=== PATIENT | female | born 1985 | race Caucasian/White ===

== ENCOUNTER 2025-01-12 09:04 | Outpatient (OUT) | payer MEDICAID, SELFPAY ==
--- OUTSIDE RECORDS SUMMARY | 2024-11-19 04:00 | XMS_ITS ---
Author Organization [facility] Address [address] [place] [address] Care Team Providers Care University Dean Name Role Phone Genoveva Jones Primary Care Provider Dr. Parker Mendes [facility] [phone] REASON FOR VISIT DELIVERY Social History Sex Assigned At : Social History Observation Description Sex Assigned At Female Encounters Encounter Location Date Provider Diagnosis [facility] [address] [place] [address] 11/19/2024 Parker Mendes Plan Of Treatment Next Appt Details Provider Name:Iris Duque , 05/17/2025 08:40:00 AM, [address] [place], [address], Progress Notes * NICHOLAS SMISOB:1985 (39 yo M)Acc No.[id number]:11/19/2024 Dental Appointment Patient: BERTO DANIELS Provider: Yunior Mendes DDS :1985 A ge:39 Y S ex:Male(T) Date:11/19/2024 Address:[address], [place], [place] Pcp:Genoveva Jones Subjective: * Chief Complaints: * 1 . DELIVERY. * Medical History: Objective: * Vitals: Assessment: Plan: * Treatment: * Images: * Electronic signature of Dr. Parker Mendes , DMD on 01/12/2025 at 09:08 AM EDT Sign off status: Pending * Provider: Yunior Mendes DDS Date: 0 11/19/2024 Generated for Liz bee/Rowan/Mic on: 0 01/12/2025 09:08 AM EDT
--- OUTSIDE RECORDS SUMMARY | 2024-11-25 04:30 | XMS_ITS ---
Author Organization [facility] Address [address] [place] [place] [address] Care Team Providers Care Economics Professor Name Role Phone Genoveva Jones Primary Care Provider REASON FOR VISIT FILLING AND ADJ IF NEEDED Social History Sex Assigned At : Social History Observation Description Sex Assigned At Female Encounters Encounter Location Date Provider Diagnosis [facility] [address] [place] [address] 11/25/2024 Genoveva Jones Plan Of Treatment Next Appt Details Provider Name:Iris Duque , 05/17/2025 08:40:00 AM, [address] [place], [address], Progress Notes * NICHOLAS SIMSOB:1985 (39 yo M)Acc No.[id number]:11/25/2024 Patient: BERTO DANIELS Provider: Yunior Jones :1985 A ge:39 Y S ex:Male(T) Date:11/25/2024 Address:[address], [facility] Subjective: * Chief Complaints: * 1 . FILLING AND ADJ IF NEEDED. * Medical History: Objective: * Vitals: Assessment: Plan: * Treatment: * Images: * Electronic signature of Lorraine Jones DMD on 01/12/2025 at 09:07 AM EDT Sign off status: Pending * Provider: Yunior Jones Date: 0 11/25/2024 Generated for Liz bee/Rowan/Mic on: 0 01/12/2025 09:07 AM EDT
--- OUTSIDE RECORDS SUMMARY | 2024-12-29 10:00 | XMS_ITS | Encounter Summary ---
Author Organization [facility] Address [address] [place] [address] Care Team Providers Care Software Qa Manager Name Role Phone Marylin Dutton DO Primary Care Provider [phone] Reason for Visit * Reason Comments Allergy Testing Pt here for allergy testing for environmental allergy testing and possible bleach allergy she/he c/o asthma due to contact with bleach * Consultation (Routine) - Closed Specialty Diagnoses / Procedures Referred By Contac t Referred To Contact Allergy and Immunology / Allergy Diagnoses Other allergy status, other than to drugs and biological substances Procedures [facility] [address] [place] [address] Phone: tel: fax: Bakari Emanuel MD [address] [address] Phone: tel: fax: Referral ID Status Reason Start Date Expiration Date Visits Re quested Visits Authorized [id number] Closed 11/09/2024 05/08/2025 1 1 Encounter Details Date Type Department Care Team (Late st Contact Info) Description 12/29/2024 10:00 AM EDT Office Visit [facility] [address] [id number] Bakari Emanuel MD [address] [address] Dyspnea, unspecified type (Primary Dx); Chronic rhinitis Social History Tobacco Use Types Packs/Day Years Used Date Smoking Tobacco: Former Cigarettes 2 15 0 08/11/1999 - 08/11/2014 Smokeless Tobacco: Never Tobacco Cessation:Counseling Given: Not Answered Alcohol Use Standard Drinks/Week Comments Yes 0 (1 standard drink = 0.6 oz pur e alcohol) Maybe once or twice a year AUDIT-C Answer Date Recorded Q1: How often do you have a drink containing alc ohol? Monthly or less 11/18/2023 Q2: How many drinks containi ng alcohol do you have on a typical day when you are drinking? 1 or 2 11/18/2023 Q3: How often do you have si x or more drinks on one occasion? Never 11/18/2023 PHQ-2 Answer Date Recorded Patient Health Questionnaire-2 Score 0 11/18/2023 Comments No Sex and Gender Information Value Date Recorded Sex Assigned at Female 11/18/2023 9:19 AM EDT Legal Sex Female 3:20 PM EDT Gender Identity Male 11/18/2023 9:19 AM EDT Sexual Orientation Straight 11/18/2023 9: 19 AM EDT documented as of this encounter Last Filed Vital Signs Vital Sign Reading Time Taken Comments Blood Pressure - - Pulse - - Temperature - - Respiratory Rate - - Oxygen Saturation - - Inhaled Oxygen Concentration - - Weight 89.8 kg (198 lb) 12/29/2024 9:42 AM EDT Height 170.2 cm (5' 7 ) 12/29/2024 9:42 AM EDT Body Mass Index 31.01 12/29/2024 9:42 AM EDT documented in this encounter Progress Notes * Bakari Emanuel MD - 12/29/2024 10:00 AM EDT Jun Moody is a very pleasant 39 y.o. year old adult who comes to the office today with the chiefcomplaint of concern about environmental allergies. Referred by Dr. Marylin Dutton He takes 6 allergy tabs OTC per day plus montelukast for symptoms of allergic rhinoconjunctivitis and asthma. These meds only help a little bit. Flonase helps only a little bit. He feels worse outdoors and with dust and debris. He feels bleach with trigger symptoms of sneeze itching and SOB and asthma attacks. Asthma control test today is 12. He is most bothered by rhinorrhea sniffling and itchy watery eyes and nasal itching and asthma symptoms. He takes Trelegy every day and this is very helpful compared to Symbicort. He feels asthma if triggered by bleach pollen heat environmental tobacco smoke and exercise. He and his have a cat at home which is a trigger for him. He has never been hospitalized for asthma since he was a child. The patient appears comfortable in the office today. Lungs are clear to auscultation bilaterally. The oral mucosa is pink and healthy without any lesions or ulcers. The palate elevates in the midline. The nasal mucosa is pale and congested with a moderate amount of turbinate engorgement and clear rhinorrhea. No polyps or epistaxis is noted. The skin is clear of any rashes, lesions, or ulceration/excoriation. Asthma control test in the office today is 12. Based on the HPI and physical exam, it is medically necessary to perform allergy skin testing todayto differentiate if the patients symptoms are allergic in nature and devise a treatment plan. This is a separate procedure from the time spent on the EM encounter. As the patient has not taken any antihistamines within the past five days, we will proceed with skin testing today. Skin testing in theoffice today performed under direct physician supervision showed positive testing for cat dust mitemold spores tree grass and ragweed. Exhaled nitric oxide is normal at 10 parts per billion. Spirometry shows an FEV1 of 110 percent of predicted with North scooping of the flow volume loop. IMPRESSION: Dyspnea on exertion - I provided reassurance regarding his normal breathing studies however given his significant symptoms we agreed to perform a methacholine challenge test to clarify whether asthma is present. Allergic rhinoconjunctivitis - We reviewed avoidance measures for the above allergens and agreed they would perform these in the home environment. I discussed the risks and benefits of allergen immunotherapy including the time commitment involved and the risk of anaphylaxis and the need to avoid beta blockers and she would like to proceed with this option. We discussed the need to avoid immunotherapy injections in the setting of wheezing shortness of breath or severe allergy symptoms. Follow was arranged in 3 months to follow the progress of immunotherapy. documented in this encounter Plan of Treatment Upcoming Encounters Date Type Department Care Team (Late st Contact Info) Description 01/17/2025 9:30 AM EDT Clinical Support [facility] [address] [place] [address] 01/24/2025 10:45 AM EDT Clinical Support [facility] [address] [place] [address] 01/31/2025 9:45 AM EDT Clinical Support [facility] [address] [place] [address] 02/07/2025 9:00 AM EDT Clinical Support [facility] [address] [place] [address] 03/09/2025 10:20 AM EDT Office Visit [facility] [address] [place] [address] Bakari Emanuel MD [address] [place] [address] 04/04/2025 12:15 PM EDT Office Visit [facility] [address] [place] [address] Irving Casper DO [address] [place] [address] Scheduled Orders Name Type Priority Associated Diagnoses Orde r Schedule METHACHOLINE CHALLENGE TEST Imaging Routine Dyspnea, unspecified type Expected: 12/29/2024, Expires: 12/29/2025 documented as of this encounter Visit Diagnoses Diagnosis Dyspnea, unspecified type- Primary Chronic rhinitis documented in this encounter Care Teams Software Qa Manager Relationship Specialty Start Date End Date Marylin Dutton DO PCP - General Family Medicine 11/06/23 documented as of this encounter
--- OUTSIDE RECORDS SUMMARY | 2025-01-10 15:45 | XMS_ITS | Encounter Summary ---
Author Organization [facility] Address [address] [place] [address] Care Team Providers Care Rotary Cutter Operator Name Role Phone Marylin Dutton DO Primary Care Provider [phone] Encounter Details Date Type Department Care Team (Latest Contact Info) Description 01/10/2025 3:45 PM EDT Clinical Support [facility] [address] [place] [address] Allergic rhinitis due to animal (cat) (dog) hair and dander; Allergic rhinitis due to dust; Seasonal allergic rhinitis due to pollen Social History Tobacco Use Types Packs/Day Years Used Date Smoking Tobacco: Former Cigarettes 2 15 0 08/11/1999 - 08/11/2014 Smokeless Tobacco: Never Alcohol Use Standard Drinks/Week Comments Yes 0 [...] AM EDT documented as of this encounter Progress Notes * Susi Sepulveda LPN - 01/10/2025 3:45 PM EDT No problem with allergy shot. Patient remained in office for recommended 30 minutes. Serum #1 Antigen(s) Serum #1 Antigen(s): Df/Dp/Clado Vial Concentration #1: 1:1,000 (Green) Dose (mL) #1: 0.05 Location #1: Left upper arm Reaction (Wheal/flare in mm) #1: none Serum #2 Antigen(s) Serum #2 Antigen(s): Tr/SpWd/Gr/SpGr Vial Concentration #2: 1:1,000 (Green) Dose (mL)#2: 0.05 Location #2: Right upper arm Reaction (Wheal/flare in mm) #2: none Serum #3 Antigen(s) (No admin fee over 2) Serum #3 Antigen(s): RW/Cat Hair Vial Concentration #3: 1:1,000 (Green) Dose: 0.05 Location: Left lower arm Reaction (Wheal/flare in mm) #3: none documented in this encounter Plan of Treatment Upcoming Encounters Date Type Department Care Team (Late st Contact Info) Description 01/17/2025 9:30 AM EDT Clinical Support [facility] [address] [place] [address] 01/24/2025 10:45 AM EDT Clinical Support [facility] [address] [place] [address] 01/31/2025 9:45 AM EDT Clinical Support [facility] [address] [place] [address] 02/07/2025 9:00 AM EDT Clinical Support [facility] [address] [place] [address] 03/09/2025 10:20 AM EDT Office Visit [facility] [address] [place] [address] Bakari Emanuel MD [address] [facility] [address] [place] [address] 04/04/2025 12:15 PM EDT Office Visit [facility] [address] [facility] [address] [place] [address] Irving Casper DO [address] [facility] [address] [place] [address] documented as of this encounter Visit Diagnoses Diagnosis Allergic rhinitis due to animal (cat) (dog) hair and dander Allergic rhinitis due to dust Allergic rhinitis due to other allergen Seasonal allergic rhinitis due to pollen documented in this encounter Care Teams Rotary Cutter Operator Relationship Specialty Start Date End Date Marylin Dutton DO PCP - General Family Medicine 11/06/23 documented as of this encounter
--- OUTSIDE RECORDS SUMMARY | 2025-01-12 09:07 | XMS_ITS | Clinical Summary ---
Author Organization [facility] Address [address] [place] [address] Care Team Providers Care Electroencephalographic Technologist Name Role Phone Marylin Dutotn DO Primary Care Provider Allergies Active Allergy Reactions Criticality Noted Date Comments Acetaminophen GI intolerance Low 02/19/2024 Aspirin Anaphylaxis High 05/19/2014 Other Reaction(s): Difficulty Breathing, heart stops Medications albuterol HFA 90 mcg/act inhaler 4 Active montelukast (Singulair) 10 MG tablet .COMPLEX 4 Active topiramate (Topamax) 25 MG tablet Daily 4 Active Fexofenadine HCl (ALLERGY 24-HR PO) Take by mouth Active estradiol-noret hindrone (Activella) 1-0.5 MG tabletIndicatio ns:Hot flashes due to surgical menopause Take 1 tablet by mouth Daily 90 tablet 3 4 025 Active Fluticasone-Ume clidin-Vilant (Trelegy Ellipta) 100-62.5-25 MCG/ACT aerosol powder Daily 5 Active lidocaine (Lidoderm) 5 % patch Daily as needed for pain 4 Active naproxen sodium (Anaprox) 550 MG tablet Take 550 mg by mouth every 12 (twelve) hours 5 Active Nurtec 75 MG tablet dispersible 4 Active topiramate 50 MG tablet Take 1 tablet by mouth in the morning. 5 Active budesonide-form oterol (Symbicort) 160-4.5 MCG/ACT inhaler Twice daily 4 025 Discontinued meloxicam (Mobic) 15 MG tablet Daily 4 025 Discontinued rizatriptan (Maxalt) 10 MG tablet Take 10 mg by mouth 1 (one) time if needed 4 025 Discontinued naproxen (Naprosyn) 500 MG tablet Take 500 mg by mouth in the morning and 500 mg in the evening. Take with meals. 4 025 Discontinued Active Problems No known active problems Encounters Date Type Department Care Team Description 01/10/2025 3:45 PM EDT Clinical Support [facility] [address] [place] [address] Allergic rhinitis due to animal (cat) (dog) hair and dander; Allergic rhinitis due to dust; Seasonal allergic rhinitis due to pollen 01/10/2025 Travel 01/04/2025 Outside Procedure [facility] [address] [place] [address] Caitlin Piedra RN Allergic rhinitis due to animal (cat) (dog) hair and dander; Allergic rhinitis due to dust; Seasonal allergic rhinitis due to pollen; Seasonal allergic rhinitis, unspecified trigger 12/29/2024 10:00 AM EDT Office Visit [facility] [address] [place] [address] Bakari Emanuel MD Dyspnea, unspecified type (Primary Dx); Chronic rhinitis 12/29/2024 Bamboo flowsheet [facility] [address] [place] [address] Bakari Emanuel MD 12/29/2024 Travel 12/22/2024 Travel from Last 3 Months Family History Medical History Relation Name Comments Heart failure Father Juvencio Moody Mental illness Father Juvencio Moody Mental illness Mother Cancer Paternal Grandfather Irving Moody Relation Name Status Comments Father Juvencio Moody Mother Alive Paternal Grandfather Irving Moody Social History Tobacco Use Types Packs/Day Years [...] Orientation Straight 11/18/2023 9: 19 AM EDT Last Filed Vital Signs Vital Sign Reading Time Taken Comments Blood Pressure 140/78 03/29/2024 1:08 PM EDT Pulse - - Temperature 36.2 C (97.1 F) 11/18/2023 9:30 AM EDT Respiratory Rate - - Oxygen Saturation - - Inhaled Oxygen Concentration - - Weight 89.8 kg (198 lb) 12/29/2024 9:42 AM EDT Height 170.2 cm (5' 7 ) 12/29/2024 9:42 AM EDT Body Mass Index 31.01 12/29/2024 9:42 AM EDT Plan of Treatment Upcoming Encounters Date Type Department Care Team (Late st Contact Info) Description 01/17/2025 9:30 AM EDT Clinical Support [facility] [address] [place] [address] 01/24/2025 10:45 AM EDT Clinical Support [facility] [address] [place] [address] 01/31/2025 9:45 AM EDT Clinical Support [facility] [address] [place] [address] 02/07/2025 9:00 AM EDT Clinical Support [facility] [address] [place] [address] 03/09/2025 10:20 AM EDT Office Visit [facility] [address] [place] [address] Bakari Emanuel MD [address] [place] [address] 04/04/2025 12:15 PM EDT Office Visit [facility] [address] [place] [address] Irving Casper DO [address] [place] [address] Insurance [employer] [place]ICA[place] Care Teams Electroencephalographic Technologist Relationship Specialty Start Date End Date Marylin Dutton DO PCP - General Family Medicine 11/06/23
--- OUTSIDE RECORDS SUMMARY | 2025-01-12 09:07 | XMS_ITS | Clinical Summary ---
Author Organization [facility] Address [address] [place] [address] Care Team Providers Care Rn Women Services Name Role Phone Levy Portillo MD Primary Care Provider Unavailab le Allergies Active Allergy Reactions Criticality Noted Date Comments Aspirin Anaphylaxis High 05/19/2014 Medications ibuprofen (ADVIL;MOTRIN) 800 MG tablet Take 1 tablet by mouth every 8 hours as needed for Pain 30 tablet 9 Active budesonide-formo terol (SYMBICORT) 160-4.5 MCG/ACT AEROIndications: Moderate asthma, unspecified whether complicated, unspecified whether persistent Inhale 2 puffs into the lungs 2 times daily 3 Inhaler 1 1 Active SUMAtriptan (IMITREX) 100 MG tabletIndication s:Intractable migraine with status migrainosus, unspecified migraine type Take 1 tablet by mouth once as needed for Migraine 9 tablet 2 1 Active butalbital-aceta minophen-caffein e (FIORICET, ESGIC) 50-325-40 MG per tabletIndication s:Intractable migraine with status migrainosus, unspecified migraine type take 1 tablet by mouth every 4 hours if needed for HEADACHES OR MIGRAINE 15 tablet 5 2 Active albuterol sulfate HFA (VENTOLIN HFA) 108 (90 Base) MCG/ACT inhaler Inhale 2 puffs into the lungs 4 times daily as needed for Wheezing 18 g 2 Active Active Problems Problem Noted Date Diagnosed Date Intractable migraine with status migrainosus Mild asthma 01/30/2021 Chronic pain of both knees 01/30/2021 Class 1 obesity due to exces s calories without serious comorbidity with body mass index (BMI) of 33.0 to 33.9 in adult 01/30/2021 Resolved Problems Problem Noted Date Diagnosed Date Resolved Date Encounter for screening for HIV 01/30/2021 03/01/2021 Need for hepatitis C screening test 01/30/2021 03/01/2021 Immunizations Immunization Administration Dates Next Due TDaP, ADACEL (age 10y-64y), BOOSTRIX (age 10y+), IM, 0.5mL 12/06/2016 Social History Tobacco Use Types Packs/Day Years Used Date Smoking Tobacco: Never Cigarettes Smokeless Tobacco: Current Tobacco Cessation:Ready to Q uit: No; Counseling Given: No Alcohol Use Standard Drinks/Week Comments No 0 (1 standard drink = 0.6 oz pur e alcohol) PHQ-2 Answer Date Recorded PHQ-9 Total Score 0 01/30/2021 Comments No Sex and Gender Information Value Date Recorded Sex Assigned at Female 12/31/2020 1:31 PM EDT Legal Sex Female 8:44 PM EDT Gender Identity Transgender Male 12/31/2020 1:31 PM EDT Sexual Orientation Straight 12/31/2020 1: 31 PM EDT Last Filed Vital Signs Vital Sign Reading Time Taken Comments Blood Pressure 129/106 10/22/2021 7:17 PM EDT Pulse 93 10/22/2021 7:17 PM EDT Temperature 36.4 C (97.6 F) 10/22/2021 5:02 PM EDT Respiratory Rate 19 10/22/2021 7:17 PM EDT Oxygen Saturation 100% 10/22/2021 7:17 PM EDT Inhaled Oxygen Concentration - - Weight 90.7 kg (200 lb) 10/22/2021 5:54 PM EDT Height 170.2 cm (5' 7 ) 01/30/2021 2:06 PM EDT Body Mass Index 31.32 01/30/2021 2:06 PM EDT Plan of Treatment Not on file Insurance [employer] Advance Directives Healthcare Agents on File Name Relationship Healthcare Agent Relationship Communication Syeda Raysa Spouse Primary Decision Maker [email or web address] om Care Teams Rn Women Services Relationship Specialty Start Date End Date Levy Portillo MD PCP - General Family Medicine 01/30/21
--- OUTSIDE RECORDS SUMMARY | 2025-01-12 09:07 | XMS_ITS | Encounter Summary ---
Author Organization [facility] Address [address] [place] [address] Care Team Providers Care Ring Rolling Machine Operator Name Role Phone Marylin Dutton DO Primary Care Provider [phone] Encounter Details Date Type Department Care Team (Latest Contact Info) Description 01/10/2025 Travel Social History Tobacco Use Types Packs/Day Years [...] AM EDT documented as of this encounter Plan of Treatment Upcoming Encounters Date Type Department Care Team (Late st Contact Info) Description 01/17/2025 9:30 AM EDT Clinical Support [facility] [address] [place] [address] 01/24/2025 10:45 AM EDT Clinical Support [facility] [address] [place] [address] 01/31/2025 9:45 AM EDT Clinical Support [facility] [address] [place] [address] 02/07/2025 9:00 AM EDT Clinical Support [facility] [address] [place] [address] 03/09/2025 10:20 AM EDT Office Visit [facility] [address] [place] [address] Bakari Emanuel MD [address] [place] [address] 04/04/2025 12:15 PM EDT Office Visit [facility] [address] [place] [address] Irving Casper DO [address] [place] [address] documented as of this encounter Visit Diagnoses Not on filedocumented in this encounter Care Teams Ring Rolling Machine Operator Relationship Specialty Start Date End Date Marylin Dutton DO PCP - General Family Medicine 11/06/23 documented as of this encounter
--- OUTSIDE RECORDS SUMMARY | 2025-01-12 09:07 | XMS_ITS | Encounter Summary ---
Author Organization [facility] Address [address] [place] [address] Care Team Providers Care Child And Adolescent Therapist Name Role Phone Marylin Dutton DO Primary Care Provider [phone] Encounter Details Date Type Department Care Team (Latest Contact Info) Description 01/04/2025 Outside Procedure [facility] [address] [place] [address] Caitlin Inman, RN [address] [place] [address] Allergic rhinitis due to animal (cat) (dog) hair and dander; Allergic rhinitis due to dust; Seasonal allergic rhinitis due to pollen; Seasonal allergic rhinitis, unspecified trigger Social History Tobacco Use Types Packs/Day Years [...] 01/17/2025 9:30 AM EDT Clinical Support [facility] [address] [place] [address] 01/24/2025 10:45 AM EDT Clinical Support [facility] [address] [place] [address] 01/31/2025 9:45 AM EDT Clinical Support [facility] [address] [place] [address] 02/07/2025 9:00 AM EDT Clinical Support [facility] [address] [place] [address] 03/09/2025 10:20 AM EDT Office Visit [facility] [address] [place] [address] Bakari Emanuel MD [address] [place] [address] 04/04/2025 12:15 PM EDT Office Visit [facility] [address] [place] [address] Irving Casper DO [address] [place] [address] Scheduled Orders Name Type Priority Associated Diagnoses Orde r Schedule Immunotherapy prescription Procedures Routine Allergic rhinitis due to animal (cat) (dog) hair and dander Allergic rhinitis due to dust Seasonal allergic rhinitis due to pollen Seasonal allergic rhinitis, unspecified trigger Ordered: 01/04/2025 documented as of this encounter Visit Diagnoses Diagnosis Allergic rhinitis due to animal (cat) (dog) hair and dander Allergic rhinitis due to dust Allergic rhinitis due to other allergen Seasonal allergic rhinitis due to pollen Seasonal allergic rhinitis, unspecified trigger documented in this encounter Care Teams Child And Adolescent Therapist Relationship Specialty Start Date End Date Marylin Dutton DO PCP - General Family Medicine 11/06/23 documented as of this encounter
--- OUTSIDE RECORDS SUMMARY | 2025-01-12 09:08 | XMS_ITS | Patient Health Record ---
Author Organization [facility] Address [address] [place] [address] Care Team Providers Care Gas Station Attendant Name Role Phone Genoveva Jones Primary Care Provider [phone] Parker Mendes Unavailable [phone] Iris Duque Unavailable [phone] Reason For Referral No Information Medications Medication SIG (Take, Route, Fr equency, Duration) Notes Start Date End Date Status Ibuprofen 800 MG 1 tablet with food o r milk as needed Orally Three times a day 07/13/2024 Active Ibuprofen 800 MG 1 tablet with food o r milk as needed Orally Three times a day 07/06/2024 Active Social History Sex Assigned At : Social History Observation Description Sex Assigned At Female Encounters Encounter Location Date Provider Diagnosis [facility] [address] [place] [address] 03/09/2024 Genoveva Jones Encounter for dental examination and cleaning with abnormal findings Z01.21 ; Other dental procedure status Z98.818 ; Acute gingivitis, plaque induced K05.00 ; Cracked tooth K03.81 and Partial loss of teeth, unspecified cause, class I K08.401 [facility] [address] [place] [address] 10/18/2024 Genoveva Jones Other dental procedure status Z98.818 [facility] [address] [place] [address] 11/08/2024 Genoveva Jones Partial loss of teeth, unspecified cause, class I K08.401 [facility] [address] [place] [address] 05/13/2024 Genoveva Jones Cracked tooth K03.81 [facility] [address] [place] [address] 07/06/2024 Genoveva Campbellic Cracked tooth K03.81 [facility] [address] [place] [address] 07/13/2024 Genoveva Saric [facility] [place] [address] 09/14/2024 Genoveva Jones Partial loss of teeth, unspecified cause, class I K08.401 [facility] [address] [place] [address] 04/05/2024 Iris Duque Acute gingivitis, plaque induced K05.00 [facility] [address] [place] [address] 03/26/2024 Genoveva Jones Assessments Encounter Date Diagnosis (ICD Code) Assessment Notes Treatment Notes Treatment Clinical Notes Section Notes 10/18/2024 Other dental procedure status (ICD-10 - Z98.818) 11/08/2024 Partial loss of teeth, unspecified cause, class I (ICD-10 - K08.401) 03/09/2024 Encounter for dental examination and cleaning with abnormal findings (ICD-10 - Z01.21) 04/05/2024 Acute gingivitis, plaque induced (ICD-10 - K05.00) 05/13/2024 Cracked tooth (ICD-10 - K03.81) 07/06/2024 Cracked tooth (ICD-10 - K03.81) 09/14/2024 Partial loss of teeth, unspecified cause, class I (ICD-10 - K08.401) 03/09/2024 Other dental procedure status (ICD-10 - Z98.818) 03/09/2024 Acute gingivitis, plaque induced (ICD-10 - K05.00) 03/09/2024 Cracked tooth (ICD-10 - K03.81) 03/09/2024 Partial loss of teeth, unspecified cause, class I (ICD-10 - K08.401) Plan Of Treatment Next Appt Details Provider Name:Iris Duque , 05/17/2025 08:40:00 AM, [address], [place], [address], Insurance Providers Payer Name Payer Address Payer Phone Subscriber Number Group Number Insured Name Patient Relationship to Insured Coverage Start Date Coverage End Date Dental [employer] DQ [address] [place] [address] [id number] BERTO SIMS Self - patient is the insured 4 [employer] [facility] [employer] [address] [place] [address] [id number] BERTO SIMS Self - patient is the insured 4
--- OUTSIDE RECORDS SUMMARY | 2025-01-12 09:08 | XMS_ITS | Encounter Summary ---
Author Organization [facility] Address [address] [place] [address] Care Team Providers Care Specialty Finishing Utility Person Name Role Phone Marylin Dutton DO Primary Care Provider [phone] Encounter Details Date Type Department Care Team (Latest Contact Info) Description 12/29/2024 Travel Social History Tobacco Use Types Packs/Day [...] [address] [place] [address] 01/24/2025 10:45 AM EDT Clinical Support [facility] [address] [place] [address] 01/31/2025 9:45 AM EDT Clinical Support [facility] [address] [place] [address] 02/07/2025 9:00 AM EDT Clinical Support [facility] [address] [place] [address] 03/09/2025 10:20 AM EDT Office Visit [facility] [address] [place] [address] Bakari Emanuel MD [address] [place] [address] 04/04/2025 12:15 PM EDT Office Visit [facility] [address] [place] [address] Irving Casper DO [address] [place] [address] documented as of this encounter Visit Diagnoses Not on filedocumented in this encounter Care Teams Specialty Finishing Utility Person Relationship Specialty Start Date End Date Marylin Dutton DO PCP - General Family Medicine 11/06/23 documented as of this encounter
--- OUTSIDE RECORDS SUMMARY | 2025-01-12 09:08 | XMS_ITS | Patient Health Record ---
Author Organization [facility] Address [address] [place] [address] Care Team Providers Care Health Sciences Manager Name Role Phone None, Unknown or Primary Care Provider Unavailab le Reason For Referral No Information Plan Of Treatment No Information Insurance Providers Payer Name Payer Address Payer Phone Subscriber Number Group Number Insured Name Patient Relationship to Insured Coverage Start Date Coverage End Date Karen Graham [address] [facility] [address] [place] [id number] Denisse Moody Self - patient is the insured 2
--- OUTSIDE RECORDS SUMMARY | 2025-01-12 09:08 | XMS_ITS | Encounter Summary ---
Author Organization [facility] Address [address] [place] [address] Care Team Providers Care Retail Banking Manager Name Role Phone Marylin Dutton DO Primary Care Provider [phone] Encounter Details Date Type Department Care Team (Late st Contact Info) Description 12/29/2024 Bamboo flowsheet [facility] [address] [facility] [address] [place] [address] Bakari Emanuel MD [address] [facility] [address] [place] [address] Social History Tobacco Use Types Packs/Day Years [...] [address] [place] [address] 01/24/2025 10:45 AM EDT Clinical Support [facility] [address] [place] [address] 01/31/2025 9:45 AM EDT Clinical Support [facility] [address] [place] [address] 02/07/2025 9:00 AM EDT Clinical Support [facility] [address] [place] [address] 03/09/2025 10:20 AM EDT Office Visit [facility] [address] [place] [address] Bakari Emanuel MD [address] [place] [address] 04/04/2025 12:15 PM EDT Office Visit [facility] [address] [place] [address] Irving Casper DO [address] [place] [address] documented as of this encounter Visit Diagnoses Not on filedocumented in this encounter Care Teams Retail Banking Manager Relationship Specialty Start Date End Date Marylin Dutton DO PCP - General Family Medicine 11/06/23 documented as of this encounter
--- NOTE | 2025-01-12 10:36 | RT_ITS ---
[facility] Test Date: 2025-01-12 Pat Name: BERTO SIMS Department: Room: - Gender: Female Clother In: Greg Aparicio RRT : 1985 Requested By: [id number] Order Number: [id number] Reading MD: Miguel Goznalez Interpretive Statements Bronchoprovocation study was conducted with methacholine at sequentially increasing aliquot concentrations according to ATS criteria. Findings were considered accurate and reproducible. Methacholine was administered up to the 16mg/mL concentration. Baseline spirometry: -FEV1/FVC: 78% -FEV1: 103% (3.18L) -FVC: 108% -KII76-33%: 88% -Flow-volume loop: Normal expiratory curvature Spirometry @ 16mg/mL methacholine concentration: -FEV1/FVC: 82% -FEV1: 3.23L (+1% improvement) Post-bronchodilator spirometry: -FEV1/FVC: 78% -FEV1: 3.32L (+4% improvement) Impressions: -No significant drop in the FEV1 up to and including the maximum administered concentration of methacholine of 16mg/mL. This is a negative bronchoprovocation challenge. Clinical correlation required. Electronically Signed On 01-13-2025 10:57:46 EDT by Miguel Gonzalez
[2025-01-12] MEDS: [UNRECOGNIZED DRUG - OTHER] IH (10:42)
[2025-01-12] MEDS: [UNRECOGNIZED DRUG - OTHER] IH (10:43)
[2025-01-12] MEDS: [UNRECOGNIZED DRUG - OTHER] IH (10:44)
[2025-01-12] MEDS: [UNRECOGNIZED DRUG - OTHER] IH (10:44)
[2025-01-12] MEDS: [UNRECOGNIZED DRUG - OTHER] IH (10:44)
[2025-01-12] MEDS: [UNRECOGNIZED DRUG - OTHER] IH (10:44)
[2025-01-12] MEDS: ALBUTEROL SULFATE 2.5 MG/3 ML VIAL NEB IH (10:55)
== END 2025-01-12 09:05 | disposition home or self-care (01) ==
LOC: CARD 09:05
PROVIDERS: Family Provider Family Medicine; PCP Family Medicine
DX: R06.00 Dyspnea, unspecified (principal)
CPT/HCPCS: 95070; J7674

== ENCOUNTER 2025-02-02 13:45 | Emergency (ER) | payer MEDICAID, SELFPAY ==
--- OUTSIDE RECORDS SUMMARY | 2025-01-24 10:45 | XMS_ITS | Encounter Summary ---
Author Organization [facility] Address [address] [place] [address] Care Team Providers Care Reed Press Feeder Name Role Phone Marylin Dutton DO Primary Care Provider [phone] Encounter Details Date Type Department Care Team (Latest Contact Info) Description 01/24/2025 10:45 AM EDT Clinical Support [facility] [address] [place] [address] Allergic rhinitis due to animal (cat) (dog) hair and dander Social History Tobacco Use Types Packs/Day Years [...] as of this encounter Progress Notes * Tonio Ferraro RN - 01/24/2025 10:45 AM EDT Patient remained in office for recommended 30 minutes. Serum #1 Antigen(s) Serum #1 Antigen(s): DF/Dp/Clado Vial Concentration #1: 1:1,000 (Green) Dose (mL) #1: 0.2 Location #1: Left upper arm Serum #2 Antigen(s) Serum #2 Antigen(s): Tr/Spwd/Gr/Spgr Vial Concentration #2: 1:1,000 (Green) Dose (mL)#2: 0.2 Location #2: Right upper arm Serum #3 Antigen(s) (No admin fee over 2) Serum #3 Antigen(s): RW/cat hair Vial Concentration #3: 1:1,000 (Green) Dose: 0.2 Location: Left lower arm documented in this encounter Plan of Treatment Upcoming Encounters Date Type Department Care Team (Late st Contact Info) Description 02/07/2025 9:00 AM EDT Clinical Support [facility] [address] [place] [address] 03/09/2025 10:20 AM EDT Office Visit [facility] [address] [place] [address] Bakari Emanuel MD [address] [place] [address] 04/04/2025 12:15 PM EDT Office Visit [facility] [address] [place] [address] Irving Casper DO [address] [place] [address] documented as of this encounter Visit Diagnoses Diagnosis Allergic rhinitis due to animal (cat) (dog) hair and dander documented in this encounter Care Teams Reed Press Feeder Relationship Specialty Start Date End Date Marylin Dutton DO PCP - General Family Medicine 11/06/23 documented as of this encounter
[2025-02-02 13:49] VITALS: BP 147/75; PULSE 90; TEMP 36.8; O2SAT 100; BMI 32.1
--- NOTE | 2025-02-02 13:59 | XR_ITS ---
The [place] [id number] Patient Name: BERTO SIMS MRN: [id number] date: 1985 Sex: F Assigned Patient Location: ED.MAIN Current Patient Location: ED.MAIN Accession/Order Number: [id number] Exam Date: 02/02/2025 14:31 Report Date: 02/02/2025 14:32 At the request of: SOLE CASTREJON MD Procedure: XR chest 1V XR chest 1V 02/02/2025 2:23 PM SIGNS AND SYMPTOMS: ^CP ^Y PROTOCOL: Frontal radiograph of the chest, shortness of breath COMPARISON: None FINDINGS: The trachea is midline. The heart and mediastinal structures are within normal limits. The lung parenchyma is clear. The bony thorax is intact. XR/XR chest 1V IMPRESSION: No acute cardiopulmonary pathology. Impression dictated by: Juvencio Rivera M.D. 02/02/2025 2:32 PM Dictation Location: [employer] [place] Electronically authenticated by: [id number] Y Date: 02/02/2025 14:32
--- NOTE | 2025-02-02 13:59 | ED_ITS ---
HPI HPI - General Adult General Chief complaint: Shortness of Breath/Dyspnea Stated complaint: rib pain Time Seen by Provider: 02/02/25 13:50 Source: patient Mode of arrival: walk-in History of Present Illness HPI narrative: 39-year-old female presents for rib pain. She is complaining of pain in her left posterior lateral rib region. There is no trauma and it started last night. She states she was wheezing and she used her albuterol inhaler. She has nebulizer at home but did not use it. No trauma or fever or productive cough. She states that this happens usually twice a year. She has had it checked out and no cause has been found. Related Data Allergies Allergy/AdvReac Type Severity Reaction Status Date / Time aspirin Allergy Severe Anaphylaxis Verified 02/02/25 13:56 acetaminophen (From Tylenol) AdvReac Severe upset Verified 02/02/25 13:56 stomach Opioid HPI Opioid Management Most Recent Opioid Data: Last Pain Scale 8 Today, 14:53 Last MAR Pain Assessment Today, 14:53 Review of Systems ROS Narrative A ten point review of systems is negative except as noted above. [facility] Medical History (Updated 02/02/25 @ 15:17 by Ayan Marlow MD) Asthma ?J45.909 - Unspecified asthma, uncomplicated (ICD-10) Social History Little interest or pleasure in doing things: not at all Feeling down, depressed, or hopeless: not at all Exam Narrative Exam Narrative: Nurses note and vital signs reviewed and patient is not hypoxic. General: The patient appears uncomfortable and in no acute respiratory distress Skin: Warm, dry, no pallor noted. There is no rash noted. Head: Normocephalic, atraumatic Eye: Normal conjunctiva, no drainage Ears, Nose, Mouth, and Throat: oral mucosa is moist. Nares patent. Cardiovascular: Regular Rate and Rhythm, not tachycardic Respiratory: Patient is in no distress, no accessory muscle use, lungs are clear to auscultation, no wheezing, rales or rhonchi Back: non-tender, including in the left posterior lateral rib area. There is no crepitus bruise or rash GI: Soft and nontender Musculoskeletal: The patient has no evidence of calf tenderness, no pitting edema, symmetrical pulses noted bilaterally Neurological: A&O, normal speech Psychiatric: Cooperative Constitutional Vital Signs, click to edit/add: Last Vital Signs Temp 98.2 F 02/02/25 13:49 Pulse 83 02/02/25 14:27 Resp 24 H 02/02/25 13:49 BP 147/75 H 02/02/25 13:49 Pulse Ox 100 02/02/25 14:27 O2 Del Method Room Air 02/02/25 14:27 Course Vital Signs Vital signs: Vital Signs Temperature 98.2 F 02/02/25 13:49 Pulse Rate 90 02/02/25 13:49 Respiratory Rate 24 H 02/02/25 13:49 Blood Pressure 147/75 H 02/02/25 13:49 Pulse Oximetry 100 02/02/25 13:49 Oxygen Delivery Method Room Air 02/02/25 13:49 Temperature 98.2 F 02/02/25 13:49 Pulse Rate 83 02/02/25 14:27 Respiratory Rate 24 H 02/02/25 13:49 Blood Pressure 147/75 H 02/02/25 13:49 Pulse Oximetry 100 02/02/25 14:27 Oxygen Delivery Method Room Air 02/02/25 14:27 Medical Decision Making MDM Narrative Medical decision making narrative: Her workup is negative including chest x-ray, D-dimer, and EKG. She was given IM morphine and an albuterol treatment and feels much better and is able to be discharged home. My clinical impression is that she has chest wall pain. Treatment diagnosis and follow-up were discussed with the patient. Differential Diagnosis Differential Diagnosis: Chest wall pain, OR, PE, pneumothorax Lab Data Lab results reviewed: Yes I reviewed the patient's lab results Labs: Lab Results 02/02/25 Range/Units 14:18 D-Dimer 0.41 (<=0.59) mg/L FEU Imaging Data Chest x-ray: Radiologist's impression: ITS Impressions Chest X-Ray 02/02/25 13:59 IMPRESSION: No acute cardiopulmonary pathology. Impression dictated by: Juvencio Rivera M.D. 02/02/2025 2:32 PM Dictation Location: [place] [address] Electronically authenticated by: [id number] Y Date: 02/02/2025 14:32 ECG Data Attestation: I personally reviewed and interpreted this ECG as follows: (EKG on my interpretation shows normal sinus rhythm with rate of 84 and no acute change) Discharge Plan Discharge Chief Complaint: Shortness of Breath/Dyspnea Clinical Impression: Chest wall pain Patient Disposition: Home, Self-Care Time of Disposition Decision: 15:17 Condition: Good Mode of Transportation: Private Vehicle Print Language: Telugu Instructions: Chest Wall Pain (ED) Referrals: Marylin Dutton DO [Primary Care Provider] - 1 week
--- NOTE | 2025-02-02 13:59 | ECG_ITS ---
[facility] Test Date: 2025-02-02 Pat Name: BERTO SIMS Department: Room: - Gender: Female Undertaker Helper: : 1985 Requested By: [id number] Order Number: [id number] Reading MD: BREONNA MAYER M.D. Measurements Intervals [place] Rate: 84 P: 36 AR: 142 QRS: 66 QRSD: 86 T: 43 QT: 382 QTc: 423 Interpretive Statements 1100 Sinus rhythm 9110 normal ECG No previous ECG available for comparison Electronically Signed On 02-02-2025 20:01:54 EDT by BREONNA MAYER M.D.
--- OUTSIDE RECORDS SUMMARY | 2025-02-02 14:05 | XMS_ITS | Clinical Summary ---
Author Organization [facility] Address [address] [email or web address] [address] Care Team Providers Care Building Rental Superintendent Name Role Phone Levy Portillo MD Primary [...] Plan of Treatment Not on file Insurance [employer] Advance Directives Healthcare Agents on File Name Relationship Healthcare Agent Relationship Communication Syeda Raysa Spouse Primary Decision Maker [email or web address] Care Teams Building Rental Superintendent Relationship Specialty Start Date End Date Levy Portillo MD PCP - General Family Medicine 01/30/21
--- OUTSIDE RECORDS SUMMARY | 2025-02-02 14:05 | XMS_ITS | Continuity of Care Document ---
Author Organization [facility] Address [address] [place] [address] Phone Support Name Relationship Address Phone Syeda Moody Personal Relationship [address] [place] [address] Gisela Smith Personal Relationship [place], [place] Marylin Dutton DO Personal Relationship [address] [place] [address] Care Teams Patient Care Team Team Status: Active Member Role Status Dates Marylin Dutton DO Primary Care Provider Active Patient Care Team Team Status: Inactive Member Role Status Dates Marylin Dutton DO Primary Care Provide r, Attending Provider Active Start: November 08, 2024 End: November 08, 2024 Chief Complaint and Reason for Visit Chief Complaint Admit Date AWV November 08, 2024 9:4 7am Reason for Visit Admit Date Environmental allergies November 08, 2024 9:47am Well adult exam November 08, 2024 9:4 7am Allergies, Adverse Reactions, Alerts Allergen Type Severity Reaction Last Updated Verified Status aspirin Allergy Unknown Difficulty Breathing, heart stops November 08, 2024 10:05am Yes Active acetaminophen Adverse Reaction Mild nausea November 08, 2024 10:05am Yes Active Social History Smoking Status Status Start Date End Date Date of Observa tion Smoker (finding) November 08, 2024 10:08am Observation Status Observation Response Date of Response Patient Sex Female November 08, 2024 10:54am Assigned Sex Female October 24 986 Sexual Orientation Family History Relationship Condition Age at Onset Recorded Date/T christiane father Chronic mental illness Unknown Heart disease Unknown Pulmonary emphysema Unknown Unknown Chronic obstructive pulmonary disease Unknown family member Unknown mother Chronic mental illness Unknown Family history of me ntal disorder Unknown paternal grandfather Malignant neoplasm Unknown Problems Active Problems Medical Problem Onset Date Status Comments Transgender Active Chronic mental illness August 11, 1994 Active Anxiety Active Depression Active Migraines Active Moderate persistent asthma Active Other chronic pain Active Acute postoperative pain Active Well adult exam Active Environmental allergies Active Bilateral knee pain Active Inactive/Resolved Problems Medical Problem Onset Date Status Comments Rib pain on left side Resolved Radial neuropathy Resolved Problem Li st clean-up per request of Phys. EHR Cmte Dental caries Resolved Sialadenitis Resolved Pain, dental Resolved Asthma Resolved Problem List cl justin-up per request of Phys. EHR Cmte Medications Medication Status Dose Units Route Directions Qty Days St art Date Stop Date End Date Instructions Montelukast 10 mg tablet Discont inued 0 .ROUTE .COMPLEX November 03, 2023 11:45a m February 03, 2024 11:36 am take 1 tablet by mouth at bedtime Meloxicam 15 mg tablet Discont inued 0 .ROUTE .COMPLEX November 10, 2023 10:48a m January 15, 2024 8:19a m take 1 tablet by mouth once daily Albuterol Sulfate 90 mcg/actuatio n HFA aerosol inhaler Discont inued 0 .ROUTE .COMPLEX 8.5 November 10, 2023 11:34a m Febru [email or web address] 4:56p m inhale 1 puff by mouth and INTO THE LUNGS every 4 hours FOR 30 DAYS Rizatriptan 10 mg tablet Discont inued 10 MG PO EVERY 2-4 HOURS as needed for migraine headache January 07, 2024 12:00a m March 05, 2024 10:37 am do not exceed 3 doses per 24 hrs Meloxicam 15 mg tablet Discont inued 0 .ROUTE .COMPLEX January 15, 2024 8:19am February 03, 2024 11:36 am take 1 tablet by mouth once daily Topiramate 25 mg tablet Discont inued 50 MG PO Every morning March 05, 2024 10:34a m March 05, 2024 10:37 am Topiramate 50 mg tablet Discont inued 50 MG PO Every morning March 05, 2024 10:35a m Novem 2023 9:10a m Rimegepant 75 mg tablet,disin tegrating Discont inued 75 MG PO Every 48 hours as needed for migraine headache March 05, 2024 12:00a m Augus t 2023 7:23a m take 1 tab at onset of headache; if no relief, may repeat 1 tab after at least 2 hrs; max = 2 tabs/24 hrs PO Budesonide-F ormoterol (Symbicort) 160-4.5 mcg/actuatio n HFA aerosol inhaler Discont inued 2 PUFF INHALA TION Twice daily 10.2 March 08, 2024 9:04pm 2023 10:18 am 2 puffs Inhalation Twice a day Rimegepant (Nurtec Odt) 75 mg tablet,disin tegrating Discont inued 75 MG PO Every 48 hours as needed for migraine headache March 31, 2024 12:00a m 2023 8:26a m Rimegepant (Nurtec Odt) 75 mg tablet,disin tegrating Active 75 MG PO Every 48 hours as needed for migraine headache 8 2023 8:26am Peak Flow Meter (Stella & Dotzone Peak Flow Meter) device Active 0 .Route 1 2023 12:00a m As directed Montelukast 10 mg tablet Active 0 .ROUTE .COMPLEX 90 Mayobe r 2023 11:01a m TAKE 1 TABLET BY MOUTH EVERY NIGHT AT BEDTIME Topiramate 50 mg tablet Active 50 MG PO Every morning 90 90 Novemb er 2023 9:10am Fluticasone Propion-Salm eterol (Advair Hfa) 115-21 mcg/actuatio n HFA aerosol inhaler Discont inued 2 PUFF INHALA TION Every 12 hours 12 2024 1:00am 2024 3:34p m administer with spacer Fluticasone- Umeclidin-Vi lanter (Trelegy Ellipta) 100-62.5-25 mcg blister with device Discont inued 1 INH INHALA TION Daily 60 2024 3:34pm [email or web address] 5:07p m Fluticasone- Umeclidin-Vi lanter (Trelegy Ellipta) 100-62.5-25 mcg blister with device Active 1 INH INHALA TION Daily 60 2024 5:07pm Albuterol Sulfate 90 mcg/actuatio n HFA aerosol inhaler Active 0 .ROUTE .COMPLEX 8.5 2024 4:56pm inhale 1 puff by mouth and INTO THE LUNGS every 4 hours FOR 30 DAYS Ibuprofen 600 mg tablet Discont inued 600 MG PO Q8H as needed for pain January 28, 2023 12:00a m October 31, 2023 8:56p m Amoxicillin 500 mg capsule Discont inued 500 MG PO Twice daily 30 05February 11, 2024 12:00a m Augus t 2023 7:22a m Chlorhexidin e Gluconate (Peridex) 0.12 % mouthwash Discont inued 12 PERCEN T MUCOUS MEM Twice daily February 11, 2024 12:00a m November 08, 2024 10:13 am Use 15 ml and rinse mouth for at least 30 secs Loratadine (Allergy Relief (Loratadine) ) 10 mg tablet Active 60 MG PO Daily February 03, 2024 12:00a m Glucosamine- Chondroitin (Osteo Bi-Flex) 250-200 mg tablet Discont inued 2 TAB PO Every morning February 03, 2024 12:00a m Septe [email or web address] 8:47a m give after food/meal Sumatriptan Succinate 100 mg tablet Discont inued 100 MG PO Daily as needed for migraine headache February 03, 2024 12:00a m March 05, 2024 10:37 am Meloxicam 15 mg tablet Discont inued 15 MG PO Every morning February 03, 2024 12:00a m Augus t 2023 7:23a m On Hold: Resume on 02/24/24. Hold while taking the anaprox DS (Naproxin sodium) Montelukast 10 mg tablet Discont inued 10 MG PO Every morning February 03, 2024 12:00a m Octob er 2023 11:01 am Naproxen Sodium (Anaprox Ds) 550 mg tablet Discont inued 550 MG PO Q12H 30 05February 19, 2024 12:00a m Augus t 2023 7:23a m Docusate Sodium (Colace) 100 mg capsule Discont inued 100 MG PO Daily February 19, 2024 12:00a m Augus 2023 7:23a m Tramadol 50 mg tablet Discont inued 50 MG PO Q6H as needed for pain 10 3 February 19, 2024 12:00a m Augus t 2023 7:23a m Amoxicillin- Pot Clavulanate 875-125 mg tablet Discont inued 1 TAB PO Twice daily 14 March 20, 2024 12:00a m [facility] 2023 5:51p m Naproxen 500 mg tablet Discont inued 500 MG PO Twice daily as needed for pain 20 March 20, 2024 12:00a m [facility] 2023 5:51p m Estradiol-No rethindrone Acet 1-0.5 mg tablet Active TAB TABLET Apr 2023 12:00a m Prednisone 50 mg tablet Discont inued 50 MG PO Daily 5 5 2023 12:00a m [facility] 2023 8:47a m administer with food or milk Lidocaine 5 % adhesive patch,medica jas Active 1 PATCH TOPICA L Daily as needed for pain 30 2023 12:00a m leave on most painful area for up to 12 hrs Ketorolac 10 mg tablet Discont inued 10 MG PO Q6H as needed for pain 15 2023 12:00a m November 08, 2024 10:12 am Topiramate 25 mg tablet Discont inued 25 MG PO Every morning October 31, 2023 12:00a m March 05, 2024 10:35 am Montelukast 10 mg tablet Discont inued 10 MG PO Daily at bedtime October 31, 2023 12:00a m November 03, 2023 11:45 am Sumatriptan Succinate (Imitrex) 100 mg tablet Discont inued 100 MG PO Twice daily as needed October 31, 2023 12:00a m January 07, 2024 10:25 am Meloxicam 15 mg tablet Discont inued 15 MG PO Daily October 31, 2023 12:00a m November 10, 2023 10:48 am Budesonide-F ormoterol (Symbicort) 160-4.5 mcg/actuatio n HFA aerosol inhaler Discont inued 2 PUFF INHALA TION Twice daily October 31, 2023 12:00a m March 08, 2024 9:05p m Free[employer] puffs Inhalation Twice a day; Note: Source Status: Taking; Refills: 5; Provider: Marija Coulter ( ) Albuterol Sulfate 90 mcg/actuatio n HFA aerosol inhaler Discont inued INHALA TION October 31, 2023 12:00a m November 10, 2023 11:35 am [employer]TextSig: inhale 1 puff by mouth and INTO THE LUNGS every 4 hours FOR 30 DAYS; Note: Source Status: Taking; Refills: 2; Qty: 8.5 Gram; Provider: Marija Coulter ( ) cetirizine (All Day Allergy (cetirizine) ) Discont inued PO November 06, 2023 12:00a m February 03, 2024 11:32 am Rimegepant (Nurtec Odt) 75 mg tablet,disin tegrating Discont inued 75 MG PO Every 48 hours as needed for migraine headache 8 November 06, 2023 12:00a m February 03, 2024 11:35 am Chlorhexidin e Gluconate (Peridex) 0.12 % mouthwash Active 15 ML MUCOUS MEM Twice daily as needed November 08, 2024 10:11a m Use 15 ml and rinse mouth for at least 30 secs Fluticasone- Umeclidin-Vi lanter (Trelegy Ellipta) 100-62.5-25 mcg blister with device Discont inued 1 INH INHALA TION Daily 60 Septem kerri 2023 12:00a m Janua ry 2024 3:34p m Immunizations Immunization Event Date Not Given Reason Dose Number Beet Worker Lot Number Vaccine Information Statement (VIS) Detail Tetanus, Diphtheria, Pertussis (Tdap) December 06, 2016 Vital Signs Vital Reading Result Reference Range Collection Date/Time Height 66 [in_i] November 08 10:05am Weight 92.24 kg November 08 10:05am Heart Rate 84 /min 60-100 November 08 10:05am Respiratory rate 18 /min 12-24 November 08, 2024 10:05am Oxygen saturation by Pulse oximetry 99 % 95-100 November 08, 2024 10: 05am BP Systolic 134 mm[Hg] 100-140 November 08 10:05am BP Diastolic 96 mm[Hg] 60-100 November 08 10:05am BMI (Body Mass Index) 32.8 kg/m2 November 08, 2024 10:05am Advance Directives Advance Directive Response Recorded Date/ Time Advance Directives No January 28 4:23am Insurance Providers Guarantor Cezar Perdomo Address [address] [facility] [address] Contact Info. Home Phone: Payer Policy Id Coverage Id Subscriber's Name Subscriber Id Effective Date Expiration Date [place] BC/BS 333 333 Cezar Perdomo 333 [facility] Medicaid [id number] Cezar Perdomo [id number] [place] Medicaid [id number] eCzar Perdomo [id number] [facility] [place] [id number] Syeda Yunior Moody [id number] Encounters Encounter Location(s) Arrival/Admit Date Discharge/Depart Date Provider(s) Departed Physician/Prov ider Office Visit [facility] Family Medicine [place] November 08, 2024 9:47am November 08, 2024 10:54am Marylin Dutton DO Recent Diagnosis Onset Date Admit Date Environmental allergies November 082024 9:47am Well adult exam November 08, 2024 9:47am Assessments Diagnosis Onset Date Resolution Status Admit Date Environmental allergies acute M arch 2024 9:47am Well adult exam acute October 9:47am Plan of Treatment Future Tests Future scheduled test information is unavailable Pending Tests Pending diagnostic test information is unavailable Future Visits Future appointment information is unavailable Referrals to Other Providers Reason for Referral Referral Start Date Provider Provider Contact Information Provider Address Z91.09 - Other allergy status, other than to drugs and biological substances November 08, 2024 Bakari Emanuel MD Email: [email or web address] Phone: [address] [place] [address] Future Procedures Future procedure information is unavailable Future Medications Future medication information is unavailable Patient Instructions Patient instructions are unavailable Hospital Discharge Instructions Ambulatory Orders* Referral to Allergy/Immunology Time Frame: 11/08/24, Location: None Selected
--- OUTSIDE RECORDS SUMMARY | 2025-02-02 14:05 | XMS_ITS | Encounter Summary ---
Author Organization [facility] Address [address] [place] [place] [address] Care Team Providers Care Tax Lawyer Name Role Phone Marylin Dutton DO Primary Care Provider [phone] Encounter Details Date Type Department Care Team (Latest Contact Info) Description 02/02/2025 Travel Social History Tobacco Use Types Packs/Day [...] [address] [place] [address] 03/09/2025 10:20 AM EDT Office Visit [facility] [address] [place] [phone] Bakari Emanuel MD [address] [place] [address] 04/04/2025 12:15 PM EDT Office Visit [facility] [address] [place] [address] Irving Casper DO [address] [place] [address] documented as of this encounter Visit Diagnoses Not on filedocumented in this encounter Care Teams Tax Lawyer Relationship Specialty Start Date End Date Marylin Dutton DO PCP - General Family Medicine 11/06/23 documented as of this encounter
--- OUTSIDE RECORDS SUMMARY | 2025-02-02 14:05 | XMS_ITS | Clinical Summary ---
Author Organization [facility] Address [address] [place] [address] Care Team Providers Care Control And Recovery Combat Rescue Name Role Phone Marylin Dutton DO Primary Care Provider [phone] Allergies Active Allergy Reactions Criticality Noted Date Comments Acetaminophen GI intolerance Low 02/19/2024 Aspirin Anaphylaxis High 05/19/2014 Other Reaction(s): Difficulty Breathing, heart stops Medications albuterol HFA 90 mcg/act inhaler 10/31/2023 Act krystal montelukast (Singulair) 10 MG tablet .COMPLEX 11/03/2023 Active topiramate (Topamax) 25 MG tablet Daily 10/31/2023 Active Fexofenadine HCl (ALLERGY 24-HR PO) Take by mouth Active estradiol-noreth indrone (Activella) 1-0.5 MG tabletIndication s:Hot flashes due to surgical menopause Take 1 tablet by mouth Daily 90 tablet 3 03/29/2024 Active Fluticasone-Umec lidin-Vilant (Trelegy Ellipta) 100-62.5-25 MCG/ACT aerosol powder Daily 09/16/2024 Active lidocaine (Lidoderm) 5 % patch Daily as needed for pain 04/22/2024 Active naproxen sodium (Anaprox) 550 MG tablet Take 550 mg by mouth every 12 (twelve) hours 10/04/2024 Active Nurtec 75 MG tablet dispersible 01/21/2024 Active topiramate 50 MG tablet Take 1 tablet by mouth in the morning. 10/04/2024 Active Active Problems No known active problems Encounters Date Type Department Care Team Description 02/02/2025 Travel 01/30/2025 Travel 01/24/2025 10:45 AM EDT Clinical Support [facility] [address] [place] [address] Allergic rhinitis due to animal (cat) (dog) hair and dander 01/24/2025 Travel 01/19/2025 Travel 01/17/2025 9:30 AM EDT Clinical Support [facility] [address] [place] [address] Allergic rhinitis due to animal (cat) (dog) hair and dander 01/17/2025 Travel 01/13/2025 Travel 01/10/2025 3:45 PM EDT Clinical Support [facility] [address] [place] [address] Allergic rhinitis due to animal (cat) (dog) hair and dander; Allergic rhinitis due to dust; Seasonal allergic rhinitis due to pollen 01/10/2025 Travel 01/04/2025 Outside Procedure [facility] [address] [facility] [place] [address] Caitlin Piedra RN Allergic rhinitis due to animal (cat) (dog) hair and dander; Allergic rhinitis due to dust; Seasonal allergic rhinitis due to pollen; Seasonal allergic rhinitis, unspecified trigger 12/29/2024 10:00 AM EDT Office Visit [facility] [address] [place] [address] Bakari Emanuel MD Dyspnea, unspecified type (Primary Dx); Chronic rhinitis 12/29/2024 Bamboo flowsheet [facility] [address] [place] [address] Bakari Emanuel MD 12/29/2024 Travel 12/22/2024 [...] Support [facility] [address] [place] [address] 03/09/2025 10:20 AM EDT Office Visit [facility] [address] [place] [address] Bakari Emanuel MD [address] [place] [address] 04/04/2025 12:15 PM EDT Office Visit [facility] [address] [place] [phone] Irving Casper DO [address] [place] [address] Insurance [employer] [place] Care Teams Control And Recovery Combat Rescue Relationship Specialty Start Date End Date Marylin Dutton DO PCP - General Family Medicine 11/06/23
--- OUTSIDE RECORDS SUMMARY | 2025-02-02 14:05 | XMS_ITS | Encounter Summary ---
Author Organization [facility] Address [address] [place] [address] Care Team Providers Care General Expeditor Name Role Phone Marylin Dutton DO Primary Care Provider [phone] Encounter Details Date Type Department Care Team (Latest Contact Info) Description 01/24/2025 Travel Social History Tobacco Use Types Packs/Day [...] [address] [place] [address] 03/09/2025 10:20 AM EDT Office Visit [facility] [address] [place] [address] Bakari Emanuel MD [address] [place] [address] 04/04/2025 12:15 PM EDT Office Visit [facility] [address] [place] [address] Irving Casper DO [address] [place] [address] documented as of this encounter Visit Diagnoses Not on filedocumented in this encounter Care Teams General Expeditor Relationship Specialty Start Date End Date Marylin Dutton DO PCP - General Family Medicine 11/06/23 documented as of this encounter
--- OUTSIDE RECORDS SUMMARY | 2025-02-02 14:05 | XMS_ITS | Encounter Summary ---
Author Organization [facility] Address [address] [place] [address] Care Team Providers Care On Call Pharmacy Technician Name Role Phone Marylin Dutton DO Primary Care Provider [phone] Encounter Details Date Type Department Care Team (Latest Contact Info) Description 01/19/2025 Travel Social History Tobacco Use Types Packs/Day [...] [address] [place] [address] 03/09/2025 10:20 AM EDT Office Visit [facility] [address] [place] [address] Bakari Emanuel MD [address] [place] [address] 04/04/2025 12:15 PM EDT Office Visit [facility] [address] [place] [address] Irving Casper DO [address] [place] [address] documented as of this encounter Visit Diagnoses Not on filedocumented in this encounter Care Teams On Call Pharmacy Technician Relationship Specialty Start Date End Date Marylin Dutton DO PCP - General Family Medicine 11/06/23 documented as of this encounter
--- OUTSIDE RECORDS SUMMARY | 2025-02-02 14:05 | XMS_ITS | Encounter Summary ---
Author Organization [facility] Address [address] [place] [address] Care Team Providers Care Puppet Developer Name Role Phone Marylin Dutton DO Primary Care Provider [phone] Encounter Details Date Type Department Care Team (Latest Contact Info) Description 01/30/2025 Travel Social History Tobacco Use Types Packs/Day [...] [address] [place] [address] 03/09/2025 10:20 AM EDT Office Visit [facility] [address] [place] [address] Bakari Emanuel MD [address] [place] [address] 04/04/2025 12:15 PM EDT Office Visit [facility] [address] [place] [address] Irving Casper DO [address] [place] [address] documented as of this encounter Visit Diagnoses Not on filedocumented in this encounter Care Teams Puppet Developer Relationship Specialty Start Date End Date Marylin Dutton DO PCP - General Family Medicine 11/06/23 documented as of this encounter
[2025-02-02 14:20] VITALS: O2SAT 100
[2025-02-02] MEDS: ALBUTEROL SULFATE 2.5 MG/3 ML VIAL NEB IH (14:26)
[2025-02-02 14:27] VITALS: PULSE 83; O2SAT 100
[2025-02-02 14:52] LABS: D Dimer 0.41 mg/L FEU (<=0.59)
[2025-02-02] MEDS: MORPHINE SULFATE 4 MG/ML VIAL 10 MG IM (14:53)
[2025-02-02 15:29] VITALS: BP 129/82; PULSE 84; O2SAT 99
== END 2025-02-02 15:29 | disposition home or self-care (01) ==
PROVIDERS: Emergency Provider Emergency Medicine; Family Provider Family Medicine; PCP Family Medicine
DX: R07.89 Other chest pain (principal)
CPT/HCPCS: 36415; 71045; 85378; 93005; 94640; 96372; 99285; J2270

== ENCOUNTER 2025-03-26 03:48 | Emergency (ER) | payer MEDICAID, SELFPAY ==
[2025-03-26 03:55] VITALS: BP 143/74; PULSE 88; TEMP 37; O2SAT 100; BMI 31.2
--- NOTE | 2025-03-26 04:13 | ED_ITS ---
HPI - Abdominal Pain General Chief Complaint: Abdominal Pain Stated Complaint: abd pain Time Seen by Provider: 03/26/25 04:07 Source: patient Mode of arrival: walk-in History of Present Illness HPI narrative: presents complaining of RLQ pain. states started about 3 hours ago. Associated with nausea. No fever or diarrhea. Past surgery hysterectomy no flank pain or urinary symptoms Related Data Home Medications ?Medication ?Instructions ?Recorded ?Confirmed albuterol sulfate 2.5 mg/3 mL 2.5 mg inhalation Q6H CO N 03/26/25 03/26/25 (0.083 %) solution for nebulization shortness of breat h or wheezing albuterol sulfate 90 mcg/actuation 1 inh inhalation Q4 H PRN shortness 03/26/25 03/26/25 aerosol inhaler of breath or wheezing Allergies Allergy/AdvReac Type Severity Reaction Status Date / Time aspirin Allergy Severe Anaphylaxis Verified 03/26/25 03:54 acetaminophen (From Tylenol) AdvReac Severe upset Verified 03/26/25 03:54 stomach Review of Systems ROS Status of ROS 10 or more systems reviewed and unremark able except as noted in history and below [facility] Medical History (Updated 03/26/25 @ 06:36 by Emery Vásquez MD) Asthma ?J45.909 - Unspecified asthma, uncomplicated (ICD-10) Social History Little interest or pleasure in doing things: not at all Feeling down, depressed, or hopeless: not at all Exam Constitutional Vital Signs, click to edit/add: Last Vital Signs Temp 98.6 F 03/26/25 03:55 Pulse 88 03/26/25 03:55 Resp 20 03/26/25 03:55 BP 143/74 H 03/26/25 03:55 Pulse Ox 100 03/26/25 03:55 O2 Del Method Room Air 03/26/25 03:55 Common normals: no apparent distress, average body habitus, oriented x3, no limitations, healthy appearing, alert and well nourished [facility] Common normals: normocephalic and head/scalp atraumatic Eye Common normals: EOMs intact bilaterally and conjunctivae normal Respiratory Common normals: normal respiratory effort, no retractions, no use of accessory muscles and clear to auscultation bilaterally Cardio Common normals: regular rate, regular rhythm, S1 normal heart sound and S2 normal heart sound GI Common normals: Normal to inspection, nondistended, normoactive bowel sounds present and soft to palpation Other: RLQ tenderness Extremity Common normals: normal to inspection and full ROM Neuro Common normals: oriented x3, CN's II-XII intact bilaterally, moves all extremities and no focal motor deficits Psych Appearance: grossly normal Course Vital Signs Vital signs: Vital Signs Temperature 98.6 F 03/26/25 03:55 Pulse Rate 88 03/26/25 03:55 Respiratory Rate 03/26/25 03:55 Blood Pressure 143/74 H 03/26/25 03:55 Pulse Oximetry 100 03/26/25 03:55 Oxygen Delivery Method Room Air 03/26/25 03:55 Temperature 98.6 F 03/26/25 03:55 Pulse Rate 88 03/26/25 03:55 Respiratory Rate 03/26/25 03:55 Blood Pressure 143/74 H 03/26/25 03:55 Pulse Oximetry 100 03/26/25 03:55 Oxygen Delivery Method Room Air 03/26/25 03:55 MDM - Abdominal Pain MDM Narrative Medical decision making narrative: patient presents with acute onset of RLQ pain . No fever or urinary symptoms. CT without acute findings except for few small nonspecific mesenteric nodes. Patient given one dose of fentanyl 50mcg and is feeling better labs WNL patient discharged and given day off work today to rest . Lab Data Labs: Lab Results 03/26/25 03/26/25 Range/Units 04:35 05:35 WBC 10.2 (4.0-11.0) 10^3/uL RBC 4.47 (4.20-5.40) 10^6/uL Hgb 13.8 (12.0-16.0) g/dL Hct 40.1 (36.0-48.0) % MCV 89.7 (81.0-99.0) fL MCH 30.9 (26.7-34.0) pg MCHC 34.4 (29.9-35.2) g/dL RDW 12.1 (11.0-15.0) % Plt Count 242 (150-450) 10^3/uL MPV 11.8 (9.5-13.5) fL Neut % (Auto) 77.8 H (43.0-75.0) % Lymph % (Auto) 17.0 L (20.5-60.0) % [place] % (Auto) 3.8 (1.7-12.0) % Eos % (Auto) 0.6 L (0.9-7.0) % Baso % (Auto) 0.4 (0.2-2.0) % Neut # (Auto) 7.9 H (1.4-6.5) 10^3/uL Lymph # (Auto) 1.7 (1.2-3.8) 10^3/uL [place] # (Auto) 0.4 (0.3-0.8) 10^3/uL Eos # (Auto) 0.1 (0.0-0.7) 10^3/uL Baso # (Auto) 0.0 (0.0-0.1) 10^3/uL Abs Immat Gran (auto) 0.04 H (0.00-0.03) 10^3/uL Imm/Tot Granulo (auto) 0.4 (0.0-0.5) % Sodium 139 (136-145) mmol/L Potassium 3.4 L (3.5-5.1) mmol/L Chloride 104 (98-107) mmol/L Carbon Dioxide 25.4 (21.0-32.0) mmol/L Anion Gap 13.0 BUN 6.0 L (7.0-18.0) mg/dL Creatinine 0.74 (0.55-1.02) mg/dL Est GFR ( Amer) >60 (>=60 mL/min/1.73m^2) Est GFR (Non-Af Amer) >60 (>=60 mL/min/1.73m^2) BUN/Creatinine Ratio 8.1 Glucose 98 (74-106) mg/dL Lactate 0.6 (0.4-2.0) mmol/L Calcium 9.2 (8.5-10.1) mg/dL Total Bilirubin 0.4 (0.2-1.0) mg/dL AST 24 (15-37) U/L ALT 31 (14-59) U/L Alkaline Phosphatase 116 (46-116) U/L Total Protein 8.1 (6.4-8.2) g/dL Albumin 4.1 (3.4-5.0) g/dL Globulin 4.0 g/dL Albumin/Globulin Ratio 1.0 Lipase 34.0 (16.0-77.0) U/L Urine Color Lt. yellow (YELLOW) Urine Clarity Clear (CLEAR) Urine pH 7.5 (5.0-9.0) Ur Specific [place] <=1.005 A (1.005-1.025) Urine Protein Negative (NEG/TRACE) mg/dL Urine Glucose (UA) Negative (NEGATIVE) mg/dL Urine Ketones Negative (NEGATIVE) mg/dL Urine Occult Blood Negative (NEGATIVE) Urine Nitrite Negative (NEGATIVE) Urine Bilirubin Negative (NEGATIVE) Urine Urobilinogen 1.0 (0.2-1.0) EU/dL Ur Leukocyte Esterase Negative (NEGATIVE) Urine RBC 0-2 (0-2) #/HPF Urine WBC 0-2 A (NONE SEEN) #/HPF Ur Squamous Epith Cells Few A (NONE/RARE) #/LPF Urine Crystals None seen (None Seen) #/HPF Urine Bacteria Trace A (NONE SEEN) #/HPF Urine Casts None seen (NONE SEEN) #/LPF Urine Mucus None seen (NONE SEEN) Ur Culture Indicated? No Discharge Plan Discharge Chief Complaint: Abdominal Pain Clinical Impression: Abdominal pain Patient Disposition: Home, Self-Care Prescriptions / Home Meds: No Action albuterol sulfate 2.5 mg /3 mL (0.083 %) solution for nebulization 2.5 mg inhalation Q6H PRN (Reason: shortness of breath or wheezing) albuterol sulfate 90 mcg/actuation HFA aerosol inhaler 1 inh INHALATION Q4H PRN (Reason: shortness of breath or wheezing) Print Language: Romanian Instructions: Abdominal Pain (ED) Additional Instructions: follow up with your doctor next week. Use tylenol for pain Referrals: Marylin Dutton DO [Primary Care Provider] - 1 week
[2025-03-26 04:48] LABS: Hematocrit 40.1 % (36.0-48.0); Hemoglobin 13.8 g/dL (12.0-16.0); Immature Granulocytes Abs Auto 0.04 10^3/uL (0.00-0.03); Immature Granulocytes Pct Auto 0.4 % (0.0-0.5); Lymphocytes Absolute Auto 1.7 10^3/uL (1.2-3.8); Mean Corpuscular HGB Conc 34.4 g/dL (29.9-35.2); Mean Corpuscular Hemoglobin 30.9 pg (26.7-34.0); Mean Corpuscular Volume 89.7 fL (81.0-99.0); Platelet Count 242 10^3/uL (150-450); Red Blood Count 4.47 10^6/uL (4.20-5.40); White Blood Count 10.2 10^3/uL (4.0-11.0)
[2025-03-26] MEDS: FENTANYL CITRATE/PF 100 MCG/2 ML VIAL 50 MCG IV (04:55)
[2025-03-26] MEDS: 0.9 % SODIUM CHLORIDE 1,000 ML 999 ML IV (04:58)
[2025-03-26 05:02] LABS: Alanine Aminotransferase 31 U/L (14-59); Albumin Globulin Ratio 1.0; Albumin Level 4.1 g/dL (3.4-5.0); Alkaline Phosphatase 116 U/L (46-116); Anion Gap 13.0; Aspartate Amino Transferase 24 U/L (15-37); Blood Urea Nitrogen 6.0 mg/dL (7.0-18.0); Calcium 9.2 mg/dL (8.5-10.1); Carbon Dioxide 25.4 mmol/L (21.0-32.0); Chloride 104 mmol/L (98-107); Estimated GFR (African America >60 (>=60 mL/min/1.73m^2); Estimated GFR (Non-African Ame >60 (>=60 mL/min/1.73m^2); Globulin 4.0 g/dL; Glucose 98 mg/dL (74-106); Lipase 34.0 U/L (16.0-77.0); Potassium 3.4 mmol/L (3.5-5.1); Sodium 139 mmol/L (136-145); Total Protein 8.1 g/dL (6.4-8.2)
[2025-03-26 05:05] LABS: Lactate/Lactic Acid 0.6 mmol/L (0.4-2.0)
[2025-03-26 06:03] LABS: Glucose Urine UA NEGATIVE (NEGATIVE)
[2025-03-26 06:10] LABS: Cast Seen? NONE SEEN #/LPF (NONE SEEN); Crystals Seen? None Seen #/HPF (None Seen); Urine Culture Indicated NO
== END 2025-03-26 06:44 | disposition home or self-care (01) ==
PROVIDERS: Emergency Provider Internal Medicine; Family Provider Family Medicine; PCP Family Medicine
DX: R10.84 Generalized abdominal pain (principal); R10.31 Right lower quadrant pain; R11.0 Nausea
CPT/HCPCS: 36415; 74177; 80053; 81001; 83605; 83690; 85025; 96374; 96375; 99285; J2405; J3010; Q9967

== ENCOUNTER 2025-04-16 03:08 | Emergency (ER) | payer MEDICAID, SELFPAY ==
[2025-04-16 03:15] VITALS: BP 118/68; PULSE 89; TEMP 36.9; O2SAT 99; BMI 30.2
--- NOTE | 2025-04-16 03:44 | ED.ABDPAIN1 ---
HPI - Abdominal Pain General Chief Complaint: Abdominal Pain Stated Complaint: STOMACH PAIN Time Seen by Provider: 04/16/25 03:40 Source: patient Mode of arrival: Wheelchair Limitations: no limitations History of Present Illness HPI narrative: presents complaining of RUQ pain and nausea for past 10 hours. Has not vomited. No diarrhea. No respiratory symptoms. Past hysterectomy Related Data Home Medications ?Medication ?Instructions ?Recorded ?Confirmed albuterol sulfate 2.5 mg/3 mL 2.5 mg inhalation Q6H PRN 03/26/25 04/16/25 (0.083 %) solution for nebulization shortness of breath or wheezing albuterol sulfate 90 mcg/actuation 1 inh inhalation Q4H PRN shortness 03/26/25 04/16/25 aerosol inhaler of breath or wheezing cyclobenzaprine 10 mg tablet 10 mg PO Q8H PRN pain 04/16/25 04/16/25 estradiol-norethindrone acet 1 1 tab PO DAILY 04/16/25 04/16/25 mg-0.5 mg tablet fluticasone fur. 100 mcg-umeclid 1 inh inhalation Q24H 04/16/25 04/16/25 62.5 mcg-vilant 25 mcg inhalat.powder (Trelegy Ellipta) lidocaine 5 % topical patch 1 patch topical Q24H PRN pain 04/16/25 04/16/25 montelukast 10 mg tablet 10 mg PO HS 04/16/25 04/16/25 ondansetron HCl 4 mg tablet 4 mg PO Q8H PRN nausea and vomiting 04/16/25 04/16/25 rimegepant 75 mg disintegrating 75 mg PO PRN migraine headache 04/16/25 tablet (Nurtec ODT) topiramate 50 mg tablet 50 mg PO DAILY 04/16/25 04/16/25 Allergies Allergy/AdvReac Type Severity Reaction Status Date / Time aspirin Allergy Severe Anaphylaxis Verified 04/16/25 03:22 acetaminophen (From Tylenol) AdvReac Severe upset Verified 04/16/25 03:22 stomach Review of Systems ROS Status of ROS 10 or more systems reviewed and unremarkable except as noted in history and below [facility] Medical History (Updated 04/16/25 @ 05:53 by Emery Vásquez MD) Asthma ?J45.909 - Unspecified asthma, uncomplicated (ICD-10) Social History Little interest or pleasure in doing things: not at all Feeling down, depressed, or hopeless: not at all Exam Constitutional Vital Signs, click to edit/add: Last Vital Signs Temp 98.5 F 04/16/25 03:15 Pulse 80 04/16/25 05:12 Resp 16 04/16/25 05:12 BP 115/54 04/16/25 05:12 Pulse Ox 100 04/16/25 05:12 O2 Del Method Room Air 04/16/25 05:12 Common normals: no apparent distress, average body habitus, oriented x3, no limitations, healthy appearing, alert and well nourished [facility] Common normals: normocephalic and head/scalp atraumatic Eye Common normals: EOMs intact bilaterally and conjunctivae normal Respiratory Common normals: normal respiratory effort, no retractions, no use of accessory muscles and clear to auscultation bilaterally Cardio Common normals: regular rate, regular rhythm, S1 normal heart sound and S2 normal heart sound GI Common normals: Normal to inspection, nondistended, normoactive bowel sounds present and soft to palpation Other: mild RUQ tenderness Extremity Common normals: normal to inspection and full ROM Neuro Common normals: oriented x3, CN's II-XII intact bilaterally, moves all extremities and no focal motor deficits Psych Appearance: grossly normal Course Vital Signs Vital signs: Vital Signs Temperature 98.5 F 04/16/25 03:15 Pulse Rate 89 04/16/25 03:15 Respiratory Rate 16 04/16/25 03:15 Blood Pressure 118/68 04/16/25 03:15 Pulse Oximetry 99 04/16/25 03:15 Oxygen Delivery Method Room Air 04/16/25 03:15 Temperature 98.5 F 04/16/25 03:15 Pulse Rate 80 04/16/25 05:12 Respiratory Rate 16 04/16/25 05:12 Blood Pressure 115/54 04/16/25 05:12 Pulse Oximetry 100 04/16/25 05:12 Oxygen Delivery Method Room Air 04/16/25 05:12 MDM - Abdominal Pain MDM Narrative Medical decision making narrative: patient presents complaining of RUQ pain and nausea. Exam with RUQ tenderness. labs with elevated LFTs. UA neg nitrite and leukocyte. moderate bacteria but only 0-2 WBCs. patient is afebrile. GB US ordered and pending at change of shift. Care transferred to Dr Clemons at change of shift Lab Data Labs: Lab Results 04/16/25 04/16/25 Range/Units 04:10 04:30 WBC 13.3 H (4.0-11.0) 10^3/uL RBC 4.52 (4.20-5.40) 10^6/uL Hgb 14.2 (12.0-16.0) g/dL Hct 40.9 (36.0-48.0) % MCV 90.5 (81.0-99.0) fL MCH 31.4 (26.7-34.0) pg MCHC 34.7 (29.9-35.2) g/dL RDW 11.9 (11.0-15.0) % Plt Count 246 (150-450) 10^3/uL MPV 12.0 (9.5-13.5) fL Neut % (Auto) 89.3 H (43.0-75.0) % Lymph % (Auto) 5.4 L (20.5-60.0) % [place] % (Auto) 4.5 (1.7-12.0) % Eos % (Auto) 0.1 L (0.9-7.0) % Baso % (Auto) 0.2 (0.2-2.0) % Neut # (Auto) 11.8 H (1.4-6.5) 10^3/uL Lymph # (Auto) 0.7 L (1.2-3.8) 10^3/uL [place] # (Auto) 0.6 (0.3-0.8) 10^3/uL Eos # (Auto) 0.0 (0.0-0.7) 10^3/uL Baso # (Auto) 0.0 (0.0-0.1) 10^3/uL Abs Immat Gran (auto) 0.06 H (0.00-0.03) 10^3/uL Imm/Tot Granulo (auto) 0.5 (0.0-0.5) % Sodium 141 (136-145) mmol/L Potassium 3.7 (3.5-5.1) mmol/L Chloride 106 (98-107) mmol/L Carbon Dioxide 22.7 (21.0-32.0) mmol/L Anion Gap 16.0 BUN 5.0 L (7.0-18.0) mg/dL Creatinine 0.73 (0.55-1.02) mg/dL Est GFR ( Amer) >60 (>=60 mL/min/1.73m^2) Est GFR (Non-Af Amer) >60 (>=60 mL/min/1.73m^2) BUN/Creatinine Ratio 6.8 Glucose 115 H (74-106) mg/dL Lactate 0.7 (0.4-2.0) mmol/L Calcium 9.3 (8.5-10.1) mg/dL Total Bilirubin 0.8 (0.2-1.0) mg/dL AST 100 H (15-37) U/L ALT 76 H (14-59) U/L Alkaline Phosphatase 170 H (46-116) U/L Troponin I High Sens <4.0 L (4.0-51.3) pg/mL Total Protein 8.5 H (6.4-8.2) g/dL Albumin 4.0 (3.4-5.0) g/dL Globulin 4.5 g/dL Albumin/Globulin Ratio 0.9 Lipase 37.0 (16.0-77.0) U/L Urine Color Yellow (YELLOW) Urine Clarity Clear (CLEAR) Urine pH 7.0 (5.0-9.0) Ur Specific [place] 1.020 (1.005-1.025) Urine Protein Negative (NEG/TRACE) mg/dL Urine Glucose (UA) Negative (NEGATIVE) mg/dL Urine Ketones Negative (NEGATIVE) mg/dL Urine Occult Blood Trace-i (NEGATIVE) Urine Nitrite Negative (NEGATIVE) Urine Bilirubin Negative (NEGATIVE) Urine Urobilinogen 2.0 A (0.2-1.0) EU/dL Ur Leukocyte Esterase Negative (NEGATIVE) Urine RBC 0-2 (0-2) #/HPF Urine WBC 0-2 A (NONE SEEN) #/HPF Ur Squamous Epith Cells Few A (NONE/RARE) #/LPF Urine Crystals None seen (None Seen) #/HPF Urine Bacteria Moderate A (NONE SEEN) #/HPF Urine Casts None seen (NONE SEEN) #/LPF Urine Mucus Moderate A (NONE SEEN) Ur Culture Indicated? Yes-[facility] Discharge Plan Discharge Patient Disposition: Still a Patient
[2025-04-16 04:25] LABS: Hematocrit 40.9 % (36.0-48.0); Hemoglobin 14.2 g/dL (12.0-16.0); Immature Granulocytes Abs Auto 0.06 10^3/uL (0.00-0.03); Immature Granulocytes Pct Auto 0.5 % (0.0-0.5); Lymphocytes Absolute Auto 0.7 10^3/uL (1.2-3.8); Mean Corpuscular HGB Conc 34.7 g/dL (29.9-35.2); Mean Corpuscular Hemoglobin 31.4 pg (26.7-34.0); Mean Corpuscular Volume 90.5 fL (81.0-99.0); Platelet Count 246 10^3/uL (150-450); Red Blood Count 4.52 10^6/uL (4.20-5.40); White Blood Count 13.3 10^3/uL (4.0-11.0)
[2025-04-16] MEDS: 0.9 % SODIUM CHLORIDE 1,000 ML 999 ML IV (04:25)
[2025-04-16] MEDS: FENTANYL CITRATE/PF 100 MCG/2 ML VIAL 50 MCG IV (04:27)
[2025-04-16] MEDS: PROMETHAZINE HCL 25 MG in 0.9 % SODIUM CHLORIDE 50 ML 204 MG IV (04:27)
[2025-04-16 04:42] LABS: Lactate/Lactic Acid 0.7 mmol/L (0.4-2.0)
[2025-04-16 04:43] LABS: Alanine Aminotransferase 76 U/L (14-59); Albumin Globulin Ratio 0.9; Albumin Level 4.0 g/dL (3.4-5.0); Alkaline Phosphatase 170 U/L (46-116); Anion Gap 16.0; Aspartate Amino Transferase 100 U/L (15-37); Blood Urea Nitrogen 5.0 mg/dL (7.0-18.0); Calcium 9.3 mg/dL (8.5-10.1); Carbon Dioxide 22.7 mmol/L (21.0-32.0); Chloride 106 mmol/L (98-107); Estimated GFR (African America >60 (>=60 mL/min/1.73m^2); Estimated GFR (Non-African Ame >60 (>=60 mL/min/1.73m^2); Globulin 4.5 g/dL; Glucose 115 mg/dL (74-106); Lipase 37.0 U/L (16.0-77.0); Potassium 3.7 mmol/L (3.5-5.1); Sodium 141 mmol/L (136-145); Total Protein 8.5 g/dL (6.4-8.2)
[2025-04-16 04:43] LABS: Glucose Urine UA NEGATIVE (NEGATIVE)
[2025-04-16 04:49] LABS: Cast Seen? NONE SEEN #/LPF (NONE SEEN); Crystals Seen? None Seen #/HPF (None Seen); Urine Culture Indicated YES-FRMC
[2025-04-16 05:12] VITALS: BP 115/54; PULSE 80; O2SAT 100
--- NOTE | 2025-04-16 05:55 | US_ITS ---
[address] [address] Patient Name: BERTO SIMS MRN: [id number] date: 1985 Sex: F Assigned Patient Location: ER Current Patient Location: ER Accession/Order Number: [id number] Exam Date: 04/16/2025 07:45 Report Date: 04/16/2025 09:02 At the request of: HOUSTON HENRY MD Procedure: US right upper quadrant LIMITED ABDOMINAL ULTRASOUND: CLINICAL HISTORY: cholecystitis COMPARISON: CT abdomen and pelvis performed 03/26/2025 TECHNIQUE: Grayscale and color Doppler images of the right upper quadrant organs were obtained. FINDINGS: Pancreas: Visualized portions appear unremarkable. Liver: Unremarkable. Gallbladder: Cholelithiasis. No wall thickening. CBD: 2.7 mm. RT KIDNEY: No Hydronephrosis US/US right upper quadrant IMPRESSION: CHOLELITHIASIS WITHOUT SONOGRAPHIC EVIDENCE OF ACUTE CHOLECYSTITIS.. Impression dictated by: Parker Kunz Jr., D.O. 04/16/2025 9:02 AM Dictation Location: [place] [address] Electronically authenticated by: [id number] Y Date: 04/16/2025 09:02
[2025-04-16 06:19] VITALS: BP 114/88; PULSE 88; TEMP 36.6; O2SAT 100
[2025-04-16 08:15] VITALS: BP 108/61; PULSE 80; TEMP 36.4; O2SAT 100
== END 2025-04-16 09:47 | disposition home or self-care (01) ==
PROVIDERS: Emergency Provider Internal Medicine; Family Provider Family Medicine; PCP Family Medicine
DX: K80.20 Calculus of gallbladder without cholecystitis without obstruction (principal); Z90.710 Acquired absence of both cervix and uterus
CPT/HCPCS: 36415; 76705; 80053; 81001; 83605; 83690; 84484; 85025; 87086; 96365; 96375; 99285; J2550; J3010